=== PATIENT | female | born 1955 | race Caucasian/White ===

== ENCOUNTER 2021-04-15 11:15 | Emergency (ER) | payer OTHER ==
[~2021-04-15] VITALS: Ht 162.6 cm; Wt 100.0 kg
[2021-04-15 11:29] VITALS: BP 114/64
[2021-04-15] MEDS ORDERED: IV NORMAL SALINE 1,000ML 1,000 ML IV ONE ×2 (11:45→13:00)
[2021-04-15 12:12] LABS: BASO % 1 % (0-3); EOS % 1 % (0-3); HEMATOCRIT 32.4 % (36.0-47.0); HEMOGLOBIN 10.7 g/dL (12.0-15.5); LYMPH # 1.1 x10^3/uL (1.0-4.8); LYMPH % 19 % (24-48); MEAN CORPUSCULAR HEMOGLOBIN 27 pg (25-35); MEAN CORPUSCULAR HGB CONC 33 g/dL (31-37); MEAN CORPUSCULAR VOLUME 84 fL (79-100); MONO # 0.5 x10^3/uL (0.0-1.1); MONO % 9 % (0-9); NEUT # 4.2 x10^3uL (1.8-7.7); NEUT % 72 % (31-73); PLATELET COUNT 257 x10^3/uL (140-400); RED BLOOD COUNT 3.88 x10^6/uL (3.50-5.40); RED CELL DISTRIBUTION WIDTH 15.3 % (11.5-14.5); WHITE BLOOD COUNT 5.8 x10^3/uL (4.0-11.0)
[2021-04-15 12:17] LABS: CALCIUM 8.3 mg/dL (8.5-10.1); CREATININE 2.3 mg/dL (0.6-1.0); GFR 21.3; POTASSIUM 3.6 mmol/L (3.5-5.1)
[2021-04-15 12:23] LABS: ALBUMIN 3.1 g/dL (3.4-5.0); ALBUMIN/GLOBULIN RATIO 0.9 (1.0-1.7); TOTAL BILIRUBIN 0.4 mg/dL (0.2-1.0); TOTAL PROTEIN 6.7 g/dL (6.4-8.2)
[2021-04-15 12:29] LABS: BACTERIA,URINE MOD /HPF (0-FEW); BILIRUBIN,URINE NEG (NEG); CLARITY,URINE HAZY; COLOR,URINE YELLOW; GLUCOSE,URINE NEG (NEG); NITRITE,URINE NEG (NEG); RBC,URINE RARE /HPF (0-2); SQUAMOUS EPITHELIAL CELL,UR MOD /LPF; UROBILINOGEN,URINE 0.2 mg/dL (0.2 mg/dL)
[2021-04-15 12:30] LABS: HYALINE CASTS, URINE OCC /HPF
--- NOTE | 2021-04-15 12:30 | PHYS DOC ---
Past History Additional Past Medical Histor: ulcers; hernia (MORRO CLEANING APRN) Past Surgical History: Hysterectomy, Other Additional Past Surgical Histo: carpal tunner/trigger finger surgery (MORRO CLEANING APRN) Alcohol Use: None (MORRO CLEANING APRN) General Adult EDM: Chief Complaint: DEHYDRATION HPI: HPI: Patient is a 65-year-old female being seen in the ER for "dehydration". Patient reports that she was at a baseball game yesterday and she felt overheated and went to the medic station to get into the air conditioning. She reports that they checked her vitals and they told her that her systolic blood pressure was 85 and her BG was 207. Patient reports that last night she did have some dizziness and cramping in her right calf. She is no longer having any symptoms that would like to get checked out for dehydration. Patient denies chest pain, headache, dizziness, lightheadedness, shortness of breath, nausea, vomiting. Patient does have a history of hypertension and is a diabetic but she does not take any medications for her diabetes. (MORRO CLEANING APRN) Review of Systems: Review of Systems: 14 body systems of the review of systems have been reviewed. See HPI for pertinent positive and negative responses, otherwise all other systems are negative, nonpertinent or noncontributory (MORRO CLEANING APRN) Current Medications: Current Meds: Current Medications Medications (Trade) Dose Ordered Sig/Watson Start Time Stop Time Status Last Admin Dose Admin Sodium Chloride 1,000 ml @ 1,000 mls/hr 1X ONCE 04/15/21 11:45 04/15/21 12:44 04/15/21 11:50 1,000 MLS/HR (MORRO CLEANING APRN) Allergies: Allergies: Allergies Coded Allergies Type Severity Reaction Last Updated Verified lisinopril Adverse Reaction Mild cough 04/15/21 Yes (MORRO CLEANING APRN) Physical Exam: PE: Constitutional: Well developed, well nourished, no acute distress, non-toxic appearance. [] HENT: Normocephalic, atraumatic, bilateral external ears normal, oropharynx moist, no oral exudates, nose normal. [] Eyes: PERRLA, EOMI, conjunctiva normal, no discharge. [] Neck: Normal range of motion, no tenderness, supple, no stridor. [] Cardiovascular:Heart rate regular rhythm, no murmur [] Lungs & Thorax: Bilateral breath sounds clear to auscultation [] Abdomen: Bowel sounds normal, soft, no tenderness, no masses, no pulsatile masses. [] Skin: Warm, dry, no erythema, no rash. [] Back: Normal range of motion Extremities: No tenderness, no cyanosis, no clubbing, ROM intact, no edema. Right lower extremity muscle cramping without any redness, warmth, swelling. Decreased strength noted in right lower extremity, mobility intact, neuro intact [] Neurologic: Alert and oriented X 3, normal motor function, normal sensory function, no focal deficits noted. [] Psychologic: Affect normal, judgement normal, mood normal. [] (MORRO CLEANING APRN) Current Patient Data: Labs: Laboratory Tests Test 04/15/21 11:48 04/15/21 12:00 White Blood Count 5.8 x10^3/uL Red Blood Count 3.88 x10^6/uL Hemoglobin 10.7 g/dL Hematocrit 32.4 % Mean Corpuscular Volume 84 fL Mean Corpuscular Hemoglobin 27 pg Mean Corpuscular Hemoglobin Concent 33 g/dL Red Cell Distribution Width 15.3 % Platelet Count 257 x10^3/uL Neutrophils (%) (Auto) 72 % Lymphocytes (%) (Auto) 19 % Monocytes (%) (Auto) 9 % Eosinophils (%) (Auto) 1 % Basophils (%) (Auto) 1 % Neutrophils # (Auto) 4.2 x10^3uL Lymphocytes # (Auto) 1.1 x10^3/uL Monocytes # (Auto) 0.5 x10^3/uL Eosinophils # (Auto) 0.0 x10^3/uL Basophils # (Auto) 0.0 x10^3/uL Sodium Level 134 mmol/L Potassium Level 3.6 mmol/L Chloride Level 100 mmol/L Carbon Dioxide Level 23 mmol/L Anion Gap 11 Blood Urea Nitrogen 41 mg/dL Creatinine 2.3 mg/dL Estimated GFR (Cockcroft-Gault) 21.3 BUN/Creatinine Ratio 18 Glucose Level 97 mg/dL Calcium Level 8.3 mg/dL Total Bilirubin 0.4 mg/dL Aspartate Amino Transf (AST/SGOT) 30 U/L Alanine Aminotransferase (ALT/SGPT) 15 U/L Alkaline Phosphatase 109 U/L Total Protein 6.7 g/dL Albumin 3.1 g/dL Albumin/Globulin Ratio 0.9 Urine Collection Type Unknown Urine Color Yellow Urine Clarity Hazy Urine pH 5.0 Urine Specific [place] 1.020 Urine Protein Neg Urine Glucose (UA) Neg mg/dL Urine Ketones (Stick) Neg mg/dL Urine Blood Neg Urine Nitrite Neg Urine Bilirubin Neg Urine Urobilinogen Dipstick 0.2 mg/dL Urine Leukocyte Esterase Small Urine RBC Rare /HPF Urine WBC 5-10 /HPF Urine Squamous Epithelial Cells Mod /LPF Urine Bacteria Mod /HPF Urine Hyaline Casts Occ /HPF Current Medications Medications (Trade) Dose Ordered Sig/Watson Route PRN Reason Start Time Stop Time Status Last Admin Dose Admin Sodium Chloride 1,000 ml @ 1,000 mls/hr 1X ONCE IV 04/15/21 11:45 04/15/21 12:44 DC 04/15/21 11:50 Sodium Chloride 1,000 ml @ 1,000 mls/hr 1X ONCE IV 04/15/21 13:00 04/15/21 13:59 UNV Cephalexin HCl (Keflex) 500 mg 1X ONCE PO 04/15/21 13:00 04/15/21 13:01 UNV Laboratory Tests Test 04/15/21 11:48 White Blood Count 5.8 x10^3/uL (4.0-11.0) Red Blood Count 3.88 x10^6/uL (3.50-5.40) Hemoglobin 10.7 g/dL (12.0-15.5) L Hematocrit 32.4 % (36.0-47.0) L Mean Corpuscular Volume 84 fL (79-100) Mean Corpuscular Hemoglobin 27 pg (25-35) Mean Corpuscular Hemoglobin Concent 33 g/dL (31-37) Red Cell Distribution Width 15.3 % (11.5-14.5) H Platelet Count 257 x10^3/uL (140-400) Neutrophils (%) (Auto) 72 % (31-73) Lymphocytes (%) (Auto) 19 % (24-48) L Monocytes (%) (Auto) 9 % (0-9) Eosinophils (%) (Auto) 1 % (0-3) Basophils (%) (Auto) 1 % (0-3) Neutrophils # (Auto) 4.2 x10^3uL (1.8-7.7) Lymphocytes # (Auto) 1.1 x10^3/uL (1.0-4.8) Monocytes # (Auto) 0.5 x10^3/uL (0.0-1.1) Eosinophils # (Auto) 0.0 x10^3/uL (0.0-0.7) Basophils # (Auto) 0.0 x10^3/uL (0.0-0.2) Sodium Level 134 mmol/L (136-145) L Potassium Level 3.6 mmol/L (3.5-5.1) Chloride Level 100 mmol/L (98-107) Carbon Dioxide Level 23 mmol/L (21-32) Anion Gap 11 (6-14) Blood Urea Nitrogen 41 mg/dL (7-20) H Creatinine 2.3 mg/dL (0.6-1.0) H Estimated GFR (Cockcroft-Gault) 21.3 BUN/Creatinine Ratio 18 (6-20) Glucose Level 97 mg/dL (70-99) Calcium Level 8.3 mg/dL (8.5-10.1) L Total Bilirubin 0.4 mg/dL (0.2-1.0) Aspartate Amino Transferase (AST) 30 U/L (15-37) Alanine Aminotransferase (ALT) 15 U/L (14-59) Alkaline Phosphatase 109 U/L (46-116) Total Protein 6.7 g/dL (6.4-8.2) Albumin 3.1 g/dL (3.4-5.0) L Albumin/Globulin Ratio 0.9 (1.0-1.7) L Vital Signs: Vital Signs Date Time Temp Pulse Resp B/P (MAP) Pulse Ox O2 Delivery O2 Flow Rate FiO2 04/15/21 11:29 98.1 75 18 114/64 97 (MORRO CLEANING APRN) EKG: EKG: [] (MORRO CLEANING APRN) Radiology/Procedures: Radiology/Procedures: [] (MORRO CLEANING APRN) Heart Score: C/O Chest Pain: No Risk Factors: Risk Factors: DM, Current or recent (<one month) smoker, HTN, HLP, family history of CAD, obesity. Risk Scores: Score 0 - 3: 2.5% MACE over next 6 weeks - Discharge Home Score 4 - 6: 20.3% MACE over next 6 weeks - Admit for Clinical Observation Score 7 - 10: 72.7% MACE over next 6 weeks - Early Invasive Strategies (MORRO CLEANING APRN) Course & Med Decision Making: Course & Med Decision Making Pertinent Labs and Imaging studies reviewed. (See chart for details) [] Patient is a 65-year-old female being evaluated for dehydration after being at a baseball game last night. Patient had no complaints in the ER. Work-up in the ER blood work, UA. She was treated with a liter of normal saline. Patient had elevated BUN and creatinine. She was given a second liter of normal saline. Following the second liter repeat CMP was performed. Kidney function trending down. Patient treated with ibuprofen for muscle cramping pain. Patient able to bear weight and ambulate with a steady gait. Patient continues to complain of right lower extremity weakness. She states she is able to move her leg but it is not as strong as the left. There is no unilateral swelling/redness/warmth. Wells score: -2. I discussed with patient the life- threatening causes of unilateral lower extremity weakness which includes CVA. I offered a CT scan of patient's head to rule out CVA. Patient refused. Patient educated on follow-up information and was given the risk of not getting a CT scan if she is having a stroke. Patient understands my advice and is choosing to not get a CT scan at this time. She reports that if she continues to have symptoms she will just follow-up with her primary care provider. She believes that this is due to her muscle cramping pain from dehydration. She also has neuropathy in that leg. Vital signs are stable. Patient was also noted to have UTI. This was treated with an antibiotic. Patient will be sent home with an antibiotic to take. I discussed with patient all findings and diagnostic testing as well as the need to follow-up with PCP for further evaluation and treatment or return to the ER if any new or worsening symptoms. Strict return precautions were also discussed at length. Patient voiced understanding and agreement with the plan. Patient is hemodynamically stable at the time of disposition. (MORRO CLEANING APRN) Dragon Disclaimer: Dragon Disclaimer: This electronic medical record was generated, in whole or in part, using a voice recognition dictation system. (MORRO CLEANING APRN) Shirlene Disclaimer: I have participated in the care of this patient and I have reviewed and agree with all pertinent clinical information above including history, exam, and recommendations. patient passed po challenge at time of discharge and had downtrending Cr after fluids. (LENORA SEAY DO) Departure Departure: Impression: Primary Impression: Dehydration Additional Impression: UTI (urinary tract infection) Qualified Codes: N30.00 - Acute cystitis without hematuria Disposition: HOME / SELF CARE / HOMELESS Condition: GOOD Referrals: PCP,UNKNOWN (PCP) Patient Instructions: Dehydration, Adult, Urinary Tract Infection Additional Instructions: You were seen in the ER today for dehydration. As we discussed, your lab work showed elevated kidney function. This was treated with 2 L of saline. When you go home make sure that you are pushing fluids. You reported cramping in your right lower extremity. An ultrasound to rule out DVT and CT scan of your head to rule out a CVA was offered and you declined. Your muscle cramping pain was treated with ibuprofen. You were noted to have a urinary tract infection. This was treated with Keflex. You were given your first dose in the ER. If antibiotic was sent in for you. Please start and finish this antibiotic completely. Please avoid any bladder irritants like sugary beverages, caffeine, alcohol. If you develop worsening of your lower extremity cramping or weakness, difficulty bearing weight or ambulating, syncope, lightheadedness, headache, chest pain, shortness of breath, nausea, vomiting, confusion please return to the ER immediately. You need to follow-up with your primary care provider tomorrow regarding your ER visit today. EMERGENCY DEPARTMENT GENERAL DISCHARGE INSTRUCTIONS Thank you for coming to [facility] (ED) today and trusting us with you care. We trust that you had a positivie experience in our Emergency Department. If you wish to speak to the department management, you may call the director at [phone]. YOUR FOLLOW UP INSTRUCTIONS ARE FOLLOWS: 1. Do you have a private Doctor? If you do not have a private doctor, please ask for a resource list of physicians or clinics that may be able to assist you with follow up care. 2. The Emergency Physician has interpreted your x-rays. The X-Ray specialist will also review them. If there is a change in the findings, you will be notified in 48 hours when at all possible. 3. A lab test or culture has been done, your results will be reviewed and you will be notified if you need a change in treatment. ADDITIONAL INSTRUCTIONS AND INFORMATION: 1. Your care today has been supervised by a physician who is specially trained in emergency care. Many problems require more than one evaluation for a complete diagnosis and treatment. We recommend that you schedule your follow up appointment as recommended to ensure complete treatment of you illness or injury. If you are unable to obtain follow up care and continue to have a problem, or if your condition worsens, we recommend that you return to the ED. 2. We are not able to safely determine your condition over the phone nor are we able to give sound medical advice over the phone. For these safety reasons, if you call for medical advice we will ask you to come to the ED for further evaluation. 3. If you have any questions regarding these discharge instructions please call the ED at [phone]. SAFETY INFORMATION: In the interest of safety, wellness, and injury prevention; we encourage you to wear your sealbelt, if you smoke; quite smoking, and we encourage family to use a protec tive helmet for bicycling and other sporting events that present an increased risk for head injury. IF YOUR SYMPTOMS WORSEN OR NEW SYMPTOMS DEVELOP, OR YOU HAVE CONCERNS ABOUT YOUR CONDITION; OR IF YOUR CONDITION WORSENS WHILE YOU ARE WAITING FOR YOUR FOLLOW UP APPOINTMENT; EITHER CONTACT YOUR PRIMARY CARE DOCTOR, THE PHYSICIAN WHOSE NAME AND NUMBER YOU WERE GIVEN, OR RETURN TO THE ED IMMEDIATELY. Scripts Cephalexin (CEPHALEXIN) 500 Mg Tablet 1 TAB PO BID for uti for 7 Days, #14 TAB 0 Refills Prov: MORRO CLEANING APRN 04/15/21 MORRO CLEANING APRN Apr 15, 2021 12:29 LENORA SEAY DO Apr 15, 2021 17:37
[2021-04-15] MEDS ORDERED: CEPHALEXIN 250 MG CAPSULE PO ONE (13:00)
[2021-04-15 14:53] LABS: CALCIUM 7.8 mg/dL (8.5-10.1); CREATININE 2.1 mg/dL (0.6-1.0); GFR 23.7; POTASSIUM 3.5 mmol/L (3.5-5.1)
[2021-04-15 14:59] LABS: ALBUMIN/GLOBULIN RATIO 0.9 (1.0-1.7); TOTAL BILIRUBIN 0.3 mg/dL (0.2-1.0); TOTAL PROTEIN 6.5 g/dL (6.4-8.2)
[2021-04-15] MEDS ORDERED: IBUPROFEN 600 MG TABLET. PO ONE (15:15)
[2021-04-15] MEDS ORDERED: CEPH500T PO (15:18)
== END 2021-04-15 15:45 | disposition home or self-care (01) ==
LOC: ER 11:15
DX: E86.0 Dehydration (principal); N30.00 Acute cystitis without hematuria; Z88.8 Allergy status to other drugs, medicaments and biological substances
CPT/HCPCS: 36415; 80053; 81001; 85025; 87086; 96360; 96361; 99283; J7030